=== PATIENT | female | born 1980 | race Caucasian/White ===

== ENCOUNTER 2016-09-07 08:46 | Emergency (ER) | payer OTHER ==
[2016-09-07 11:47] LABS: HEMOGLOBIN 14.6 gm/dl (12.3-15.3); RED BLOOD COUNT 4.7 M/UL (4.00-5.10); WHITE BLOOD COUNT 6.4 K/UL (4.5-11.0)
[2016-09-07 12:28] LABS: BUN/CREATININE RATIO 13 (0-10)
== END 2016-09-07 13:40 | disposition home or self-care (01) ==
LOC: ER1 08:46
PROVIDERS: Physician Assistant
DX: R11.2 Nausea with vomiting, unspecified (principal); F17.200 Nicotine dependence, unspecified, uncomplicated
CPT/HCPCS: 36415; 80053; 81001; 84703; 85025; 96361; 96374; 99284; J2405

== ENCOUNTER 2016-11-11 14:36 | Emergency (ER) | payer SELFPAY | END 2016-11-11 15:14 | disposition home or self-care (01) | LOC: ER1 14:36 | DX: K05.219 Aggressive periodontitis, localized, unspecified severity (principal); F17.210 Nicotine dependence, cigarettes, uncomplicated | CPT/HCPCS: 99282 ==

== ENCOUNTER 2017-03-08 10:29 | Emergency (ER) | payer OTHER | END 2017-03-08 11:38 | disposition home or self-care (01) | LOC: ER1 10:29 | DX: K05.219 Aggressive periodontitis, localized, unspecified severity (principal); F17.210 Nicotine dependence, cigarettes, uncomplicated; F32.9 Major depressive disorder, single episode, unspecified | CPT/HCPCS: 99282 ==

== ENCOUNTER → 2021-03-30 | Outpatient (CLI) | payer OTHER ==
[~2021-03-30] MED LIST: BENTYL 20MG TAB20 MG PO; LODINE CAP 300300 MG PO; MEDROL4 MG PO; NAPROSYN500 MG PO; NORCO 7.5-3251 EACH PO; ZOFRAN ODT 4 MG4 MG PO
== END ==
LOC: KOH-I 10:02
DX: R06.02 Shortness of breath (principal); R05.9 Cough, unspecified
CPT/HCPCS: 71046